=== PATIENT | female | born 1945 | race Caucasian/White ===

== ENCOUNTER 2018-05-04 11:16 | Outpatient (CLI) | payer MEDICARE | END 2018-05-04 11:17 | disposition home or self-care (01) | LOC: BICMAMMO 11:16 | PROVIDERS: ATTEND Family Medicine | DX: Z12.31 Encounter for screening mammogram for malignant neoplasm of breast (principal); R92.1 Mammographic calcification found on diagnostic imaging of breast | CPT/HCPCS: 77063; 77067 ==

== ENCOUNTER 2019-01-27 09:51 | Outpatient (CLI) | payer MEDICARE ==
--- NOTE | 2019-01-27 12:20 | CT ---
CT LUMBAR SPINE WITHOUT CONTRAST: TECHNIQUE: Multiple axial tomograms are obtained through the lumbar spine without IV enhancement. INDICATION: Spinal stenosis. Low back pain. FINDINGS: The lumbar vertebrae maintain height and alignment. Mild to moderate degenerative osteophytes are se en from the lumbar vertebrae. There are degenerative disk changes with mild loss of disk space throu ghout, most prominent at L5-S1. No evidence of spondylolisthesis of spondylolysis. At L1-2, mild disk bulge abuts the anterior thecal sac. Facet hypertrophy. No central canal or fora mack stenosis. At L2-3, minimal disk bulge. Moderate facet hypertrophy. No significant central canal or foraminal stenosis. At L3-4, broad-based disk bulge is more prominent. Facet and ligamentous hypertrophy is prominent. These changes compress the thecal sac resulting in moderate to severe central canal stenosis. [employer] ior epidural fat also compresses the thecal sac. Mild bilateral foraminal encroachment due to the di ffuse disk bulge. At L4-5, broad-based disk bulge. Prominent facet and ligamentous hypertrophy. Moderate to severe ce ntral canal stenosis. Bilateral foraminal encroachment, more prominent on the right due to asymmetri c disk bulge projecting into the right foramina and projecting laterally on the right. At L5-S1: There is a broad-based disk bulge with a focal disk protrusion paracentrally on the right with mild inferior extension. 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 Mild bilateral for aminal narrowing due to the facet hypertrophy. IMPRESSION: 1. Disk protrusion paracentrally on the right at L5-S1 with mild inferior extension displaces the tr aversing right S1 nerve root. 2. Moderate to severe central canal stenosis at L3-4 and L4-5 as described above. POS: OFF
== END 2019-01-27 09:52 | disposition home or self-care (01) ==
LOC: SCSCT 09:51
PROVIDERS: ATTEND Orthopaedic Surgery
DX: M48.061 Spinal stenosis, lumbar region without neurogenic claudication (principal); M54.31 Sciatica, right side; M51.27 Other intervertebral disc displacement, lumbosacral region; M48.07 Spinal stenosis, lumbosacral region
CPT/HCPCS: 72131

== ENCOUNTER 2022-03-21 11:46 | Outpatient (CLI) | payer MEDICARE | END 2022-03-21 11:47 | disposition home or self-care (01) | LOC: BICRAD 11:46 | PROVIDERS: ATTEND Internal Medicine Medical Oncology | DX: M25.552 Pain in left hip (principal); D47.2 Monoclonal gammopathy; R93.7 Abnormal findings on diagnostic imaging of other parts of musculoskeletal system; Z79.899 Other long term (current) drug therapy | CPT/HCPCS: 36415; 80053; 82248; 83520; 83615; 83883; 84100; 84155; 84165; 84550; 86200; 86334 ==

== ENCOUNTER 2022-04-05 09:00 | Outpatient (CLI) | payer MEDICARE | END 2022-04-05 09:01 | disposition home or self-care (01) | LOC: BICMAMMO 09:00 | PROVIDERS: ATTEND Internal Medicine Medical Oncology | DX: D47.2 Monoclonal gammopathy (principal); R92.8 Other abnormal and inconclusive findings on diagnostic imaging of breast; Z79.899 Other long term (current) drug therapy | CPT/HCPCS: 77066; G0279 ==

== ENCOUNTER 2023-05-07 12:43 | Outpatient (CLI) | payer MEDICARE | END 2023-05-07 12:44 | disposition home or self-care (01) | LOC: BICMAMMO 12:43 | PROVIDERS: ATTEND Family Medicine | DX: Z12.31 Encounter for screening mammogram for malignant neoplasm of breast (principal); Z13.820 Encounter for screening for osteoporosis; R92.333 Mammographic heterogeneous density, bilateral breasts; Z78.0 Asymptomatic menopausal state | CPT/HCPCS: 77063; 77067; 77080 ==

== ENCOUNTER 2023-05-15 13:03 | Outpatient (CLI) | payer MEDICARE | END 2023-05-15 13:04 | disposition home or self-care (01) | LOC: BICMAMMO 13:03 | PROVIDERS: ATTEND Family Medicine | DX: N63.22 Unspecified lump in the left breast, upper inner quadrant (principal) | CPT/HCPCS: 76642; 77065; G0279 ==

== ENCOUNTER → 2023-06-05 | Day surgery (SDC) | payer MEDICARE | LOC: BICULT 12:03 | PROVIDERS: ATTEND Family Medicine | PROC: 0H9U3ZX Drainage of Left Breast, Percutaneous Approach, Diagnostic (ICD-10-PCS; principal; 2023-06-05) | DX: N63.12 Unspecified lump in the right breast, upper inner quadrant (principal); N61.0 Mastitis without abscess; R92.8 Other abnormal and inconclusive findings on diagnostic imaging of breast | CPT/HCPCS: 19083; 88305 ==

== ENCOUNTER 2024-07-05 11:58 | Outpatient (CLI) | payer MEDICARE | END 2024-07-05 11:59 | disposition home or self-care (01) | LOC: BICMAMMO 11:58 | PROVIDERS: ATTEND Family Medicine | DX: Z12.31 Encounter for screening mammogram for malignant neoplasm of breast (principal); Z91.89 Other specified personal risk factors, not elsewhere classified | CPT/HCPCS: 77063; 77067 ==

== ENCOUNTER 2025-07-07 09:11 | Outpatient (CLI) | payer MEDICARE | END 2025-07-07 09:12 | disposition home or self-care (01) | LOC: BICMAMMO 09:11 | PROVIDERS: ATTEND Family Medicine | DX: Z12.31 Encounter for screening mammogram for malignant neoplasm of breast (principal); Z91.89 Other specified personal risk factors, not elsewhere classified | CPT/HCPCS: 77063; 77067 ==